=== PATIENT | male | born 1970 | race Caucasian/White ===

== ENCOUNTER → 2020-07-30 07:38 | Outpatient (CLI) | payer OTHER, SELFPAY ==
[2020-07-30 08:39] LABS: Hemoglobin A1C% w Est Avg Glu 8.5 % (4.0-6.0)
[2020-07-30 08:59] LABS: Creatinine Urine Random 118.4 mg/dL
[2020-07-30 09:00] LABS: Alanine Aminotransferase 30 IU/L (<50); Albumin Globulin Ratio 1.4 (1.0-2.8); Alkaline Phosphatase 80 U/L (38-126); Aspartate Aminotransferase 27 IU/L (17-59); BUN Creatinine Ratio 22.5 (6-22); Bilirubin Total 0.5 mg/dL (0.2-1.3); Blood Urea Nitrogen 25 mg/dL (9-20); Calcium 9.8 mg/dL (8.4-10.2); Carbon Dioxide 37 mmol/L (22-32); Chloride 102 mmol/L (98-107); Cholesterol 182 mg/dL (140-199); Estimated Glomerular Filt Rate > 60.0 mL/min (>60); Globulin 2.9 g/dL (1.7-4.1); Glucose 151 mg/dL (70-100); HDL Cholesterol 83 mg/dL (40-60); HEMOLYSIS < 15 (0-50); LDL Cholesterol Calculated 78 mg/dL (<100); Potassium 5.1 mmol/L (3.4-5.1); Sodium 140 mmol/L (137-145); Total Protein 6.9 g/dL (6.3-8.2); Triglycerides 105 mg/dL (35-150)
[2020-07-30 09:02] LABS: Microalbumi Creatinin Ratio Ur 19.4 ug/mg CR (<30); Microalbumin Urine Random 2.3 mg/dL (0-1.6)
== END ==
PROVIDERS: PCP Family Medicine; Referring Provider Family Medicine; Visit Provider Family Medicine
DX: E11.9 Type 2 diabetes mellitus without complications (principal); Z79.4 Long term (current) use of insulin
CPT/HCPCS: 36415; 80053; 80061; 82043; 82570; 83036

== ENCOUNTER → 2020-08-17 09:34 | Outpatient (CLI) | payer OTHER, SELFPAY ==
[2020-08-17 10:33] LABS: Hemoglobin A1C% w Est Avg Glu 8.8 % (4.0-6.0)
[2020-08-21 07:22] LABS: Percent Free Testosterone 2.43 % (1.50-4.20); Testosterone Free 16.12 ng/dL (5.00-21.00); Testosterone Total 663.5 ng/dL (264.0-916.0)
== END ==
PROVIDERS: PCP Family Medicine; Referring Provider Family Medicine; Visit Provider Family Medicine
DX: R68.82 Decreased libido (principal); E11.9 Type 2 diabetes mellitus without complications; Z79.4 Long term (current) use of insulin
CPT/HCPCS: 36415; 83036; 84402; 84403

== ENCOUNTER → 2020-09-01 08:58 | Outpatient (CLI) | payer OTHER, SELFPAY ==
--- NOTE | 2020-09-01 08:59 | DI.RAD.S_ITS ---
PROCEDURE: XR SHOULDER LT MIN 2V INDICATIONS: left shoulder pain TECHNIQUE: 3 views of the shoulder were acquired. COMPARISON: None. FINDINGS: Bones: No fractures or dislocations. Mild to moderate acromioclavicular joint and glenohumeral joint osteoarthritic changes are seen with joint space narrowing and small marginal osteophyte formation. No suspicious bony lesions. Visualized ribs appear intact. Soft tissues: No suspicious soft tissue calcifications. IMPRESSION: Mild to moderate left shoulder joint osteoarthritis. No fracture or dislocation. Dictated by: Kam Mercer M.D. on 09/01/2020 at 9:11 Approved by: Kam Mercer M.D. on 09/01/2020 at 9:12
== END ==
PROVIDERS: PCP Family Medicine; Referring Provider Family Medicine; Visit Provider Family Medicine
DX: M25.512 Pain in left shoulder (principal); M19.012 Primary osteoarthritis, left shoulder; G89.29 Other chronic pain
CPT/HCPCS: 73030

== ENCOUNTER → 2020-11-12 08:43 | Outpatient (CLI) | payer OTHER, SELFPAY ==
[2020-11-12 09:19] LABS: Hemoglobin A1C% w Est Avg Glu 7.7 % (4.0-6.0)
[2020-11-19 08:45] LABS: Percent Free Testosterone 2.72 % (1.50-4.20); Testosterone Free 16.01 ng/dL (5.00-21.00); Testosterone Total 588.7 ng/dL (264.0-916.0)
== END ==
PROVIDERS: PCP Family Medicine; Referring Provider Family Medicine; Visit Provider Family Medicine
DX: E11.9 Type 2 diabetes mellitus without complications (principal); Z79.4 Long term (current) use of insulin; N52.9 Male erectile dysfunction, unspecified
CPT/HCPCS: 36415; 83036; 84402; 84403

== ENCOUNTER → 2021-04-02 09:29 | Outpatient (CLI) | payer OTHER, SELFPAY ==
[2021-04-02 10:52] LABS: Hemoglobin A1C% w Est Avg Glu 7.4 % (4.0-6.0)
== END ==
PROVIDERS: PCP Family Medicine; Referring Provider Family Medicine; Visit Provider Family Medicine
DX: E11.9 Type 2 diabetes mellitus without complications (principal); Z79.4 Long term (current) use of insulin
CPT/HCPCS: 36415; 83036

== ENCOUNTER → 2021-06-22 13:30 | Outpatient (CLI) | payer OTHER, SELFPAY ==
[2021-06-22 14:36] LABS: Hemoglobin A1C% w Est Avg Glu 7.5 % (4.0-6.0)
== END ==
PROVIDERS: PCP Family Medicine; Referring Provider Family Medicine; Visit Provider Family Medicine
DX: E11.9 Type 2 diabetes mellitus without complications (principal); Z79.4 Long term (current) use of insulin
CPT/HCPCS: 36415; 83036

== ENCOUNTER → 2022-01-10 10:24 | Outpatient (CLI) | payer OTHER, SELFPAY ==
[2022-01-10 10:56] LABS: Add Manual Diff / Slide Review NO; Basophils Absolute Auto 0 /uL (0-100); Basophils Percent Auto 0.6 % (0-2); Eosinophils Absolute Auto 100 /uL (0-450); Eosinophils Percent Auto 1.2 % (2-4); Hematocrit 44.2 % (41-53); Hemoglobin 14.9 g/dL (13.5-17.5); Lymphocytes Absolute Auto 1500 /uL (1100-4500); Lymphocytes Percent Auto 25.5 % (25-40); Mean Corpuscular HGB Conc 33.8 % (30-36); Mean Corpuscular Hemoglobin 31.6 PG (26-34); Mean Corpuscular Volume 93.7 fL (80-100); Monocytes Absolute Auto 500 /uL (0-900); Monocytes Percent Auto 8.6 % (3-14); Neutrophils Absolute Auto 3900 /uL (1500-7000); Neutrophils Percent Auto 64.1 % (50-75); Platelet Count 225 X10^3/uL (150-400); Red Blood Cell Count 4.72 X10^6/uL (4.5-5.9)
[2022-01-10 11:55] LABS: Alanine Aminotransferase 31 IU/L (<50); Albumin Globulin Ratio 1.4 (1.0-2.8); Alkaline Phosphatase 77 U/L (38-126); Aspartate Aminotransferase 32 IU/L (17-59); BUN Creatinine Ratio 18.3 (6-22); Bilirubin Total 0.5 mg/dL (0.2-1.3); Blood Urea Nitrogen 23 mg/dL (9-20); Carbon Dioxide 29 mmol/L (22-32); Chloride 103 mmol/L (98-107); Cholesterol 145 mg/dL (140-199); Estimated Glomerular Filt Rate > 60 mL/min (>60); Globulin 2.8 g/dL (1.7-4.1); Glucose 140 mg/dL (70-100); HDL Cholesterol 71 mg/dL (40-60); HEMOLYSIS < 15 (0-50); LDL Cholesterol Calculated 60 mg/dL (<100); Potassium 4.7 mmol/L (3.4-5.1); Sodium 138 mmol/L (137-145); Total Protein 6.8 g/dL (6.3-8.2); Triglycerides 71 mg/dL (35-150)
[2022-01-10 11:57] LABS: Microalbumin Urine Random 4.7 mg/dL (0-1.6)
== END ==
PROVIDERS: PCP Family Medicine; Referring Provider Family Medicine; Visit Provider Family Medicine
DX: I10 Essential (primary) hypertension (principal); R80.9 Proteinuria, unspecified; Z79.4 Long term (current) use of insulin; E11.9 Type 2 diabetes mellitus without complications
CPT/HCPCS: 36415; 80053; 80061; 82043; 82570; 83036; 85025

== ENCOUNTER → 2022-12-13 07:36 | Outpatient (CLI) | payer OTHER, SELFPAY ==
[2022-12-13 10:15] LABS: Alanine Aminotransferase 36 IU/L (<50); Albumin Globulin Ratio 1.3 (1.0-2.8); Alkaline Phosphatase 87 U/L (38-126); Aspartate Aminotransferase 29 IU/L (17-59); BUN Creatinine Ratio 22.2 (6-22); Blood Urea Nitrogen 22 mg/dL (9-20); Calcium 9.1 mg/dL (8.4-10.2); Carbon Dioxide 30 mmol/L (22-32); Chloride 98 mmol/L (98-107); Estimated Glomerular Filt Rate > 60 mL/min (>60); Glucose 299 mg/dL (70-100); HEMOLYSIS < 15 (0-50); Potassium 4.6 mmol/L (3.4-5.1); Sodium 132 mmol/L (137-145)
[2022-12-14 04:12] LABS: x Labcorp Estim. Avg Glu (eAG) 209 mg/dL (.); x Labcorp Hemoglobin A1c 8.9 % (4.8-5.6)
[2022-12-14 09:49] LABS: Fecal Immunochemical Test Negative (Negative)
== END ==
PROVIDERS: PCP Family Medicine; Referring Provider Family Medicine; Visit Provider Family Medicine
DX: Z12.11 Encounter for screening for malignant neoplasm of colon (principal); E11.9 Type 2 diabetes mellitus without complications; Z79.4 Long term (current) use of insulin
CPT/HCPCS: 36415; 80053; 82274; 83036

== ENCOUNTER → 2022-12-29 09:06 | Outpatient (CLI) | payer OTHER, SELFPAY ==
--- NOTE | 2022-12-29 09:07 | DI.RAD.S_ITS ---
PROCEDURE: XR SHOULDER LT MIN 2V INDICATIONS: bilateral shoulder pain TECHNIQUE: 3 views of the shoulder were acquired. COMPARISON: [facility], CR, XR SHOULDER LT MIN 2V, 09/01/2020, 8:58. FINDINGS: Bones: No fractures or dislocations. No suspicious bony lesions. Mild osteoarthritic changes in acromioclavicular and glenohumeral joint. Visualized ribs appear intact. Soft tissues: No suspicious soft tissue calcifications. IMPRESSION: Mild osteoarthrosis. Dictated by: Anita Soto M.D. on 12/29/2022 at 13:21 Approved by: Anita Soto M.D. on 12/29/2022 at 13:22
--- NOTE | 2022-12-29 09:07 | DI.RAD.S_ITS ---
PROCEDURE: XR SHOULDER RT MIN 2V INDICATIONS: bilateral shoulder pain TECHNIQUE: 3 views of the shoulder were acquired. COMPARISON: None. FINDINGS: Bones: No fractures or dislocations. No suspicious bony lesions. Mild osteoarthritic changes in acromioclavicular and glenohumeral joint. Visualized ribs appear intact. Soft tissues: No suspicious soft tissue calcifications. IMPRESSION: Mild osteoarthritis. Dictated by: Anita Soto M.D. on 12/29/2022 at 13:22 Approved by: Anita Soto M.D. on 12/29/2022 at 13:26
== END ==
PROVIDERS: PCP Family Medicine; Referring Provider Family Medicine; Visit Provider Family Medicine
DX: M19.011 Primary osteoarthritis, right shoulder (principal); M19.012 Primary osteoarthritis, left shoulder
CPT/HCPCS: 73030

== ENCOUNTER → 2023-03-20 07:59 | Outpatient (CLI) | payer OTHER, SELFPAY ==
[2023-03-20 09:20] LABS: Hemoglobin A1C% w Est Avg Glu 6.9 % (4.0-6.0)
[2023-03-20 09:41] LABS: Alanine Aminotransferase 33 IU/L (<50); Albumin 3.9 g/dL (3.5-5.0); Albumin Globulin Ratio 1.3 (1.0-2.8); Alkaline Phosphatase 75 U/L (38-126); Aspartate Aminotransferase 34 IU/L (17-59); Bilirubin Total 0.4 mg/dL (0.2-1.3); Blood Urea Nitrogen 22 mg/dL (9-20); Calcium 8.9 mg/dL (8.4-10.2); Carbon Dioxide 30 mmol/L (22-32); Chloride 102 mmol/L (98-107); Cholesterol 171 mg/dL (140-199); Estimated Glomerular Filt Rate > 60 mL/min (>60); Globulin 2.9 g/dL (1.7-4.1); Glucose 96 mg/dL (70-100); HDL Cholesterol 87 mg/dL (40-60); HEMOLYSIS < 15 (0-50); LDL Cholesterol Calculated 78 mg/dL (<100); Potassium 4.2 mmol/L (3.4-5.1); Sodium 137 mmol/L (137-145); Total Protein 6.8 g/dL (6.3-8.2); Triglycerides 31 mg/dL (35-150)
[2023-03-20 10:58] LABS: Creatinine Urine Random 119.1 mg/dL
[2023-03-20 11:02] LABS: Microalbumi Creatinin Ratio Ur 32.7 ug/mg CR (<30); Microalbumin Urine Random 3.9 mg/dL (0-1.6)
== END ==
PROVIDERS: PCP Family Medicine; Referring Provider Family Medicine; Visit Provider Family Medicine
DX: E11.9 Type 2 diabetes mellitus without complications (principal); I10 Essential (primary) hypertension; R80.9 Proteinuria, unspecified; Z79.4 Long term (current) use of insulin; Z12.5 Encounter for screening for malignant neoplasm of prostate
CPT/HCPCS: 36415; 80053; 80061; 82043; 82570; 83036; G0103

== ENCOUNTER → 2023-06-14 12:28 | Outpatient (CLI) | payer OTHER, SELFPAY ==
[2023-06-14 13:32] LABS: Hemoglobin A1C% w Est Avg Glu 8.5 % (4.0-6.0)
[2023-06-14 13:43] LABS: Alanine Aminotransferase 25 IU/L (<50); Albumin 4.2 g/dL (3.5-5.0); Albumin Globulin Ratio 1.3 (1.0-2.8); Alkaline Phosphatase 88 U/L (38-126); Aspartate Aminotransferase 30 IU/L (17-59); BUN Creatinine Ratio 19.5 (6-22); Bilirubin Total 0.9 mg/dL (0.2-1.3); Blood Urea Nitrogen 16 mg/dL (9-20); Calcium 9.3 mg/dL (8.4-10.2); Carbon Dioxide 31 mmol/L (22-32); Chloride 102 mmol/L (98-107); Estimated Glomerular Filt Rate > 60 mL/min (>60); Globulin 3.2 g/dL (1.7-4.1); Glucose 293 mg/dL (70-100); HEMOLYSIS < 15 (0-50); Potassium 4.5 mmol/L (3.4-5.1); Sodium 137 mmol/L (137-145); Total Protein 7.4 g/dL (6.3-8.2)
== END ==
PROVIDERS: PCP Family Medicine; Referring Provider Family Medicine; Visit Provider Family Medicine
DX: E11.9 Type 2 diabetes mellitus without complications (principal); Z79.4 Long term (current) use of insulin; I10 Essential (primary) hypertension; R80.9 Proteinuria, unspecified; E16.2 Hypoglycemia, unspecified
CPT/HCPCS: 36415; 80053; 83036

== ENCOUNTER → 2023-06-19 13:05 | Outpatient (CLI) | payer OTHER, SELFPAY ==
[2023-06-19 14:14] LABS: Influenza A - CEPHEID Flu A NEGATIVE (NEGATIVE); Influenza B - CEPHEID Flu B NEGATIVE (NEGATIVE); Respiratory Syncytial Virus Negative (Negative)
[2023-06-19 14:15] LABS: COVID-19 CEPHEID 4-PLEX PCR Negative (Negative)
== END ==
PROVIDERS: PCP Family Medicine; Visit Provider Family Medicine
DX: R05.9 Cough, unspecified (principal); R09.89 Other specified symptoms and signs involving the circulatory and respiratory systems
CPT/HCPCS: 0241U

== ENCOUNTER → 2023-11-02 07:14 | Outpatient (CLI) | payer BC, SELFPAY ==
[2023-11-02 07:47] LABS: Add Manual Diff / Slide Review NO; Basophils Absolute Auto 100 /uL (0-100); Basophils Percent Auto 0.7 % (0-2); Eosinophils Absolute Auto 100 /uL (0-450); Eosinophils Percent Auto 0.7 % (2-4); Lymphocytes Absolute Auto 1300 /uL (1100-4500); Lymphocytes Percent Auto 17.9 % (25-40); Mean Corpuscular HGB Conc 33.4 % (30-36); Mean Corpuscular Hemoglobin 31.8 PG (26-34); Mean Corpuscular Volume 95.3 fL (80-100); Monocytes Absolute Auto 600 /uL (0-900); Monocytes Percent Auto 8.2 % (3-14); Neutrophils Absolute Auto 5100 /uL (1500-7000); Neutrophils Percent Auto 72.5 % (50-75); Platelet Count 224 X10^3/uL (150-400); Red Blood Cell Count 5.35 X10^6/uL (4.5-5.9); Red Cell Distribution Width 13.4 % (11.6-14.8); White Blood Cell Count 7.1 X10^3/uL (4.5-11.0)
[2023-11-02 08:59] LABS: Alanine Aminotransferase 33 IU/L (<50); Albumin 3.9 g/dL (3.5-5.0); Albumin Globulin Ratio 1.3 (1.0-2.8); Alkaline Phosphatase 87 U/L (38-126); Aspartate Aminotransferase 36 IU/L (17-59); BUN Creatinine Ratio 19.1 (6-22); Bilirubin Total 0.7 mg/dL (0.2-1.3); Blood Urea Nitrogen 26 mg/dL (9-20); Calcium 9.6 mg/dL (8.4-10.2); Carbon Dioxide 29 mmol/L (22-32); Chloride 104 mmol/L (98-107); Cholesterol 110 mg/dL (140-199); Estimated Glomerular Filt Rate > 60 mL/min (>60); Globulin 3.1 g/dL (1.7-4.1); Glucose 151 mg/dL (70-100); HDL Cholesterol 66 mg/dL (40-60); HEMOLYSIS < 15 (0-50); LDL Cholesterol Calculated 35 mg/dL (<100); Potassium 4.5 mmol/L (3.4-5.1); Sodium 139 mmol/L (137-145); Triglycerides 46 mg/dL (35-150)
[2023-11-02 09:01] LABS: Hemoglobin A1C% w Est Avg Glu 7.1 % (4.0-6.0)
[2023-11-02 11:12] LABS: Creatinine Urine Random 118.7 mg/dL
[2023-11-02 11:15] LABS: Microalbumin Urine Random 2.5 mg/dL (0-1.6)
[2023-11-03 04:10] LABS: Apolipoprotein B 42 mg/dL (<90)
[2023-11-06 17:11] LABS: Lipoprotein (a) 9.2 nmol/L (<75.0)
== END ==
PROVIDERS: PCP Family Medicine; Referring Provider Family Medicine; Visit Provider Family Medicine
DX: I10 Essential (primary) hypertension (principal); R80.9 Proteinuria, unspecified; E11.9 Type 2 diabetes mellitus without complications; E16.2 Hypoglycemia, unspecified; I21.4 Non-ST elevation (NSTEMI) myocardial infarction; I25.10 Atherosclerotic heart disease of native coronary artery without angina pectoris; Z79.4 Long term (current) use of insulin
CPT/HCPCS: 36415; 80053; 80061; 82043; 82172; 82570; 83036; 83695; 85025

== ENCOUNTER → 2024-01-18 10:21 | Outpatient (CLI) | payer OTHER, SELFPAY ==
--- NOTE | 2024-01-18 10:24 | DI.RAD.S_ITS ---
PROCEDURE: XR CERVICAL SPINE 2V OR 3V INDICATIONS: bilateral shoulder and radicular symptoms TECHNIQUE: 3 view(s) of the cervical spine were acquired. COMPARISON: None. FINDINGS: Bones: No fractures or dislocations to the T1 level. The lateral masses of C1 appear intact on the odontoid view. No suspicious bony lesions. Moderate disc height loss at C5-6, C6-7. Mild disc height loss at remaining levels. Diffuse facet arthrosis, most prominent at C4 through C7. Soft tissues: No prevertebral soft tissue swelling. IMPRESSION: Mild to moderate, multilevel degenerative disc disease and diffuse facet arthrosis. Dictated by: Evens Cruz M.D. on 01/18/2024 at 13:49 Approved by: Evens Cruz M.D. on 01/18/2024 at 13:49
== END ==
PROVIDERS: PCP Family Medicine; Referring Provider Family Medicine; Visit Provider Family Medicine
DX: M47.812 Spondylosis without myelopathy or radiculopathy, cervical region (principal); M50.31 Other cervical disc degeneration, high cervical region; M54.10 Radiculopathy, site unspecified; M19.019 Primary osteoarthritis, unspecified shoulder; I25.10 Atherosclerotic heart disease of native coronary artery without angina pectoris; I21.4 Non-ST elevation (NSTEMI) myocardial infarction; G56.03 Carpal tunnel syndrome, bilateral upper limbs; M35.3 Polymyalgia rheumatica
CPT/HCPCS: 72040

== ENCOUNTER → 2024-01-30 14:27 | Outpatient (CLI) | payer OTHER, SELFPAY ==
--- NOTE | 2024-01-30 14:43 | DIAB.INIT ---
Continuous Glucose Monitor (CGM) Diabetes Education Name: Elias Kilpatrick (Jero) Date: 01/30/24 Time: 230-3p Dx: Type II Diabetes Provider: Mely Presents today for CGM sample and diabetes education. Reports he is inconsistent with SMBG. Would like to know more about BG trends. Diagnosed in his 20s. Enjoys ice cream regularly per report. Wants to see how diet impacts BG. Physical Activity: Goes to the gym. Diabetes Medications: 25mg Jardiance 15u Lantus AM 2mg Ozempic Pertinent Labs: HgA1c: 8.5% 05/2023 7.2% 08/2023 7.1% 10/2023 Past Medical History: (Last Reviewed 12/13/23 @ 15:45 by Irais Castillo RN) CAD (coronary artery disease) Diabetes mellitus with insulin therapy Excessive daytime sleepiness Hypertension with albuminuria Long-term insulin use NSTEMI (non-ST elevated myocardial infarction) Primary osteoarthritis, left shoulder Intervention: This participant was very receptive. Provided appropriate educational handouts. Discussed the following topics: HgA1c goals Reviewed CGM use and equipment Discussed when to check blood sugars using finger stick Reviewed high and low blood sugar signs/symptoms and treatment options Provided education for self-administration of CGM placement Educated patient on alarm settings Discussed when to replace equipment and disposal Access to CGM, benefits and options Goals: Wear CGM x 14 days Follow-up: PATRICIO FAJARDO follow-up in 2 weeks Marissa Kenny RDN, TANA Certified Diabetes Care and Hog Room Supervisor P: [phone] Thank you for this referral
== END ==
PROVIDERS: PCP Family Medicine; Referring Provider Family Medicine
DX: E11.9 Type 2 diabetes mellitus without complications (principal); Z79.4 Long term (current) use of insulin; I10 Essential (primary) hypertension; R80.9 Proteinuria, unspecified; Z79.85 Long-term (current) use of injectable non-insulin antidiabetic drugs; Z79.84 Long term (current) use of oral hypoglycemic drugs
CPT/HCPCS: G0108

== ENCOUNTER → 2024-02-12 09:20 | Outpatient (CLI) | payer OTHER, SELFPAY ==
[2024-02-12 10:15] LABS: Hemoglobin A1C% w Est Avg Glu 7.2 % (4.0-6.0)
[2024-02-12 10:43] LABS: Alanine Aminotransferase 48 IU/L (<50); Albumin 3.8 g/dL (3.5-5.0); Albumin Globulin Ratio 1.5 (1.0-2.8); Alkaline Phosphatase 71 U/L (38-126); Aspartate Aminotransferase 44 IU/L (17-59); BUN Creatinine Ratio 17.8 (6-22); Bilirubin Total 0.8 mg/dL (0.2-1.3); Blood Urea Nitrogen 23 mg/dL (9-20); Calcium 8.6 mg/dL (8.4-10.2); Carbon Dioxide 29 mmol/L (22-32); Chloride 104 mmol/L (98-107); Estimated Glomerular Filt Rate > 60 mL/min (>60); Globulin 2.5 g/dL (1.7-4.1); Glucose 189 mg/dL (70-100); HEMOLYSIS 24 (0-50); Potassium 5.1 mmol/L (3.4-5.1); Sodium 135 mmol/L (137-145); Total Protein 6.3 g/dL (6.3-8.2)
[2024-02-12 10:48] LABS: C-Reactive Protein Quant < 0.5 mg/dL (<1.0)
[2024-02-12 11:14] LABS: Prostate Specific Antigen Scrn 1.93 ng/mL (0.1-4.0)
[2024-02-12 11:28] LABS: Erythrocyte Sedimentation Rate 1 MM/HR (0-15)
== END ==
PROVIDERS: PCP Family Medicine; Referring Provider Physician Assistant; Visit Provider Physician Assistant
DX: Z12.5 Encounter for screening for malignant neoplasm of prostate (principal); Z79.4 Long term (current) use of insulin; E11.9 Type 2 diabetes mellitus without complications; I10 Essential (primary) hypertension; R80.9 Proteinuria, unspecified; M25.511 Pain in right shoulder; M35.3 Polymyalgia rheumatica; M25.512 Pain in left shoulder
CPT/HCPCS: 36415; 80053; 83036; 85651; 86140; G0103

== ENCOUNTER → 2024-02-16 14:37 | Outpatient (CLI) | payer OTHER, SELFPAY ==
--- NOTE | 2024-02-16 15:16 | DIAB.FU ---
Follow-up Diabetes Education Assessment Name: Elias Kilpatrick (Jero) Date: 02/16/24 Time: 3-325p Dx: Type II Diabetes Provider: Mely Presents today after CGM sample and diabetes education. CGM fell off few days after placement. Unable to access reports for BG. PCP placed Rx for G7 two days ago. 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 Feels he will be able to place and start sensor on his own. Provided him with resources and started an acct on Dexcom janeth in clinic. Wants to see how CGM goes before making diet changes. Eye appt yearly. Dental q 6 months. Does not check feet. Endorses dry heels during summer months. Wears socks in house, no slipper. Physical Activity: Goes to the gym. Diabetes Medications: 25mg Jardiance 15u Lantus AM 2mg Ozempic Pertinent Labs: HgA1c: 8.5% 05/2023 7.2% 08/2023 7.1% 10/2023 7.2% 01/2024 Past Medical History: (Last Reviewed 12/13/23 @ 15:45 by Irais Castillo RN) CAD (coronary artery disease) Diabetes mellitus with insulin therapy Excessive daytime sleepiness Hypertension with albuminuria Long-term insulin use NSTEMI (non-ST elevated myocardial infarction) Primary osteoarthritis, left shoulder Intervention: This participant was very receptive. Provided appropriate educational handouts. Discussed the following topics: Dexcom G7 v FSL: apps, coupons if not covered for any reason, alerts, application Foot care: check feet, infection risks with hyperglycemia, dry foot tx, encouraged wearing a slipper with sole Pharmacy troubleshooting for G7 rx and messaged PCP team Goals: Wear CGM x 14 days- d/c Call or message RD if needing help with placement of sensor and/or needing f/u- new Follow-up: PATRICIO FAJARDO follow-up prn per pt request. Marissa Kenny RDN, TANA Certified Diabetes Care and Packager Hand P: [phone] Thank you for this referral
== END ==
PROVIDERS: PCP Family Medicine; Referring Provider Family Medicine
DX: E11.9 Type 2 diabetes mellitus without complications (principal); Z79.84 Long term (current) use of oral hypoglycemic drugs; Z79.4 Long term (current) use of insulin; Z79.85 Long-term (current) use of injectable non-insulin antidiabetic drugs; Z71.3 Dietary counseling and surveillance
CPT/HCPCS: G0108

== ENCOUNTER → 2024-02-21 16:09 | Outpatient (CLI) | payer OTHER, SELFPAY ==
--- NOTE | 2024-02-21 16:10 | DI.MRI.S_ITS ---
PROCEDURE: MR CERVICAL SPINE WO CON INDICATIONS: eval cervical disc degenaration, radicular sx TECHNIQUE: Noncontrast sagittal T1 spin echo and T2 fast spin echo, sagittal STIR, foraminal oblique sagittal T2 fast spin echo, and axial gradient echo or T2 fast spin echo through the cervical spine. COMPARISON: None. FINDINGS: Image quality: Excellent. Alignment and Curvature: There is normal bony alignment. Bone Marrow: Marrow demonstrates normal overall signal. Spinal Cord: Visualized spinal cord has normal size and signal. No cerebellar tonsillar herniation. Paraspinous Soft Tissues: No paravertebral masses. Prevertebral soft tissues are normal in thickness. C2-C3: Normal appearance. C3-C4: Normal appearance. C4-C5: Normal appearance. C5-C6: Posterior disc osteophyte complex results in dwwz-kk-yzenvifr central stenosis. Moderate bilateral foraminal stenosis C6-C7: Posterior disc osteophyte complex results in hpfp-cm-hjvnmezn central stenosis.. Hypertrophic facet joints present. Moderate bilateral foraminal stenosis. C7-T1: No central stenosis. Facet arthropathy. Severe left and no right foraminal stenosis IMPRESSION: Multilevel degenerative disc disease and arthropathy results in varying degrees of central and foraminal stenosis including severe left foraminal stenosis Approved by: Livan Ayala M.D. on 02/22/2024 at 12:43
== END ==
PROVIDERS: PCP Family Medicine; Referring Provider Family Medicine; Visit Provider Family Medicine
DX: M48.02 Spinal stenosis, cervical region (principal); M50.322 Other cervical disc degeneration at C5-C6 level; M19.011 Primary osteoarthritis, right shoulder; M19.012 Primary osteoarthritis, left shoulder; M25.511 Pain in right shoulder; M25.512 Pain in left shoulder; G56.03 Carpal tunnel syndrome, bilateral upper limbs; M47.812 Spondylosis without myelopathy or radiculopathy, cervical region
CPT/HCPCS: 72141

== ENCOUNTER → 2024-06-29 09:42 | Outpatient (CLI) | payer OTHER, SELFPAY ==
[2024-06-29 11:05] LABS: Hemoglobin A1C% w Est Avg Glu 7.1 % (4.0-6.0)
== END ==
PROVIDERS: PCP Family Medicine; Referring Provider Family Medicine; Visit Provider Family Medicine
DX: E11.9 Type 2 diabetes mellitus without complications (principal); Z79.4 Long term (current) use of insulin
CPT/HCPCS: 36415; 83036

== ENCOUNTER → 2024-07-02 16:21 | Outpatient (CLI) | payer OTHER, SELFPAY ==
--- NOTE | 2024-07-02 16:23 | DI.RAD.S_ITS ---
PROCEDURE: XR SHOULDER RT MIN 2V INDICATIONS: Right Shoulder Pain TECHNIQUE: 3 views of the shoulder were acquired. COMPARISON: [facility], CR, XR SHOULDER RT MIN 2V, 12/29/2022, 9:04. [facility], CR, XR SHOULDER LT MIN 2V, 09/01/2020, 8:58. FINDINGS: Bones: No fractures or dislocations. Mild to moderate acromioclavicular and glenohumeral joint degeneration. No suspicious bony lesions. Visualized ribs appear intact. Soft tissues: No suspicious soft tissue calcifications. IMPRESSION: No acute bony abnormality. Mild to moderate acromioclavicular and glenohumeral joint degeneration, similar to prior. Dictated by: Kwasi Paul M.D. on 07/03/2024 at 10:07 Approved by: Kwasi Paul M.D. on 07/03/2024 at 10:11
--- NOTE | 2024-07-02 16:23 | DI.RAD.S_ITS ---
PROCEDURE: XR SHOULDER LT MIN 2V INDICATIONS: Left Shoulder Pain TECHNIQUE: 3 views of the shoulder were acquired. COMPARISON: [facility], CR, XR SHOULDER RT MIN 2V, 12/29/2022, 9:04. [facility], CR, XR SHOULDER LT MIN 2V, 09/01/2020, 8:58. FINDINGS: Bones: No fractures or dislocations. Abga-dn-roogqorl glenohumeral and acromioclavicular joint degeneration. No suspicious bony lesions. Visualized ribs appear intact. Soft tissues: No suspicious soft tissue calcifications. IMPRESSION: No acute bony abnormality. Mild to moderate glenohumeral and acromioclavicular joint degeneration. This is similar to prior. Dictated by: Kwasi Paul M.D. on 07/03/2024 at 10:06 Approved by: Kwasi Paul M.D. on 07/03/2024 at 10:07
--- NOTE | 2024-07-02 16:23 | DI.RAD.S_ITS ---
PROCEDURE: XR WRIST RT MIN 3V INDICATIONS: Right Wrist Pain TECHNIQUE: 4 views of the wrist were acquired. COMPARISON: None. FINDINGS: Bones: No fractures or dislocations. No suspicious bony lesions. Soft tissues: No suspicious soft tissue calcifications. Atherosclerotic vascular calcifications. IMPRESSION: No acute osseous abnormality. If pain persists with conservative management, consider repeat x-ray in 10-14 days or cross-sectional imaging. Dictated by: Kwasi Paul M.D. on 07/03/2024 at 10:11 Approved by: Kwasi Paul M.D. on 07/03/2024 at 10:13
== END ==
PROVIDERS: PCP Family Medicine; Referring Provider Family Medicine; Visit Provider Family Medicine
DX: M19.012 Primary osteoarthritis, left shoulder (principal); M19.011 Primary osteoarthritis, right shoulder; M25.512 Pain in left shoulder; M25.511 Pain in right shoulder; M25.531 Pain in right wrist
CPT/HCPCS: 73030; 73110

== ENCOUNTER → 2024-10-24 10:21 | Outpatient (CLI) | payer OTHER, SELFPAY ==
[2024-10-24 12:25] LABS: Add Manual Diff / Slide Review NO; Basophils Absolute Auto 0 /uL (0-100); Basophils Percent Auto 0.3 % (0-2); Eosinophils Absolute Auto 0 /uL (0-450); Eosinophils Percent Auto 0.4 % (2-4); Lymphocytes Absolute Auto 1600 /uL (1100-4500); Lymphocytes Percent Auto 19.8 % (25-40); Mean Corpuscular HGB Conc 34.1 % (30-36); Mean Corpuscular Hemoglobin 32.8 PG (26-34); Monocytes Absolute Auto 600 /uL (0-900); Monocytes Percent Auto 7.8 % (3-14); Neutrophils Absolute Auto 5800 /uL (1500-7000); Neutrophils Percent Auto 71.7 % (50-75); Platelet Count 216 X10^3/uL (150-400); Red Blood Cell Count 4.58 X10^6/uL (4.5-5.9); Red Cell Distribution Width 13.3 % (11.6-14.8); White Blood Cell Count 8.1 X10^3/uL (4.5-11.0)
[2024-10-24 12:31] LABS: Hemoglobin A1C% w Est Avg Glu 7.6 % (4.0-6.0)
[2024-10-24 12:50] LABS: BUN Creatinine Ratio 27.5 (6-22); Blood Urea Nitrogen 25 mg/dL (9-20); Calcium 9.4 mg/dL (8.4-10.2); Carbon Dioxide 27 mmol/L (22-32); Chloride 102 mmol/L (98-107); Estimated Glomerular Filt Rate > 60 mL/min (>60); Glucose 223 mg/dL (70-100); HEMOLYSIS < 15 (0-50); Potassium 4.3 mmol/L (3.4-5.1); Sodium 137 mmol/L (137-145)
== END ==
LOC: LAB 10:22
PROVIDERS: PCP Family Medicine; Referring Provider Nurse Practitioner Family; Visit Provider Nurse Practitioner Family
DX: I25.10 Atherosclerotic heart disease of native coronary artery without angina pectoris (principal); I10 Essential (primary) hypertension; R80.9 Proteinuria, unspecified; E11.9 Type 2 diabetes mellitus without complications; Z79.4 Long term (current) use of insulin
CPT/HCPCS: 36415; 80048; 83036; 85025

== ENCOUNTER 2025-01-17 07:57 | Day surgery (SDC) | payer OTHER, SELFPAY ==
--- NOTE | 2025-01-17 | PATH_ITS ---
[facility] Accession Number: [id number] No. of containers..02 Tissue . 01 Material submitted: . PART A: colon - COLON, ASCENDING POLYP PART B: colon - COLON, DESCENDING POLYP . 01 Diagnosis: Part A: COLON, ASCENDING POLYP: Tubular adenoma. . Part B: COLON, DESCENDING POLYP: Tubular adenoma. STO 01/23/2025 1240 Local . 01 Electronically signed: . Nnamdi Sparks MD, Pathologist NPI- [id number] . 01 Gross description: . Part A: COLON,ASCENDING POLYP: Received in formalin is 1 fragment(s) of zavala, soft tissue measuring 0.6 x 0.3 x 0.3 cm submitted entirely in 1 cassette(s) . Part B: COLON,DESCENDING POLYP: Received in formalin is 1 fragment(s) of zavala, soft tissue measuring 0.7 x 0.4 x 0.4 cm submitted entirely in 1 cassette(s) /EFREN 01/23/2025 1240 Local . 01 Pathologist provided ICD-10: D12.2, D12.4 . 01 CPT . 824329, [id number] Specimen Comment: A courtesy copy of this report has been sent to [phone] Performed at: [address] [facility] [address], [place], [place] [id number] MD Nnamdi Sparks MD Phone: [phone]
[2025-01-17 08:27] VITALS: BP 133/75; PULSE 70; RESP 15; TEMP 36.1; O2SAT 100
[2025-01-17] MEDS: LACTATED RINGERS 1,000 ML 42 ML IV (08:36)
[2025-01-17 08:37] LABS: POC Glucose 59 mg/dL (70-99)
--- NOTE | 2025-01-17 08:51 | PM.HP.IH.1 ---
History of Present Illness History of Present Illness Date Patient Seen: 01/17/25 Time Patient Seen: 08:51 Chief complaint: Colonoscopy Narrative: Shaggy is a 54-year-old man here for a screening colonoscopy. See the office note for details. [facility] Medical History Osteoarthritis of right shoulder Cervical stenosis of spine CAD (coronary artery disease) NSTEMI (non-ST elevated myocardial infarction) Excessive daytime sleepiness Primary osteoarthritis, left shoulder Hypertension with albuminuria Long-term insulin use Diabetes mellitus with insulin therapy Surgical History Anesthesia History of back surgery Family History Mother Congestive heart failure Social History marital status: household members: spouse lives independently: Yes occupational status: employed Smoking Status: Never smoker alcohol intake: current substance use type: marijuana Meds Home Medications and Allergies Home Medications ?Medication ?Instructions ?Recorded ?Confirmed ?Type True Metrics Test Strips #400 ea 06/19/23 10/24/24 Rx atorvastatin 40 mg tablet 40 mg PO QPM 10/06/23 01/17/25 History clopidogrel 75 mg tablet 75 mg PO DAILY 10/06/23 01/17/25 History nitroglycerin 0.4 mg sublingual 0.4 mg sublingual Q5M PRN 10/06/23 10/24/24 History tablet blood-glucose sensor (Dexcom G7 #9 ea 05/14/24 10/24/24 Rx Sensor device) empagliflozin 25 mg tablet 25 mg PO DAILY #90 tabs 05/14/24 01/17/25 Rx (Jardiance) losartan 25 mg tablet 25 mg PO DAILY #90 tabs 05/14/24 01/17/25 Rx gabapentin 300 mg capsule 300 mg PO .COMPLEX #90 caps 09/11/24 01/17/25 Rx pregabalin 150 mg capsule 150 mg PO BID 10/24/24 01/17/25 History Lantus U-100 Insulin 100 unit/mL 15 unit (0.15 mL) SUBCUT DAILY #10 11/08/24 01/17/25 Rx subcutaneous solution (insulin mL glargine) semaglutide 2 mg/dose (8 mg/3 mL) 2 mg (0.75 mL) SUBCUT QWEEK #3 mL 11/18/24 01/17/25 Rx subcutaneous pen injector (Ozempic) metoprolol succinate 25 mg 12.5 mg PO DAILY 01/17/25 01/17/25 History tablet,extended release 24 hr Allergies Allergy/AdvReac Type Severity Reaction Status Date / Time No Known Drug Allergies Allergy Verified 01/17/25 08:44 Exam Vital Signs (past 8 hours): - 01/17/25 08:27 Temperature 97 F L Pulse Rate 70 Respiratory Rate 15 Blood Pressure 133/75 Pulse Oximetry 100 Oxygen Delivery Method Room Air Oxygen Delivery Method Room Air Const General: healthy appearing Objective Labs Labs: Laboratory Results - last 24 hr 01/17/25 08:31 POC Whole Bld Glucose 59 L Assessment & Plan Assessment and plan (1) Colon cancer screening: Status: Acute Plan Colonoscopy Time-Based Coding :: [TOTAL MINUTES] spent with patient and on the chart (including review of chart, obtaining history, exam, reviewing outside data, placing orders, documenting exam and treatment plan, and counseling patient) on [DATE]. PROFEE Wallboard Worker Document charge(s): No
[2025-01-17 09:24] VITALS: BP 90/48; PULSE 80; RESP 13; TEMP 36.2; O2SAT 99
--- NOTE | 2025-01-17 09:29 | PM.OP.COLON ---
Operative Date/Time/Diagnoses Date of procedure: 01/17/25 Time of procedure: 09:29 Pre-op diagnosis: Colon cancer screening Post-op diagnosis: same Procedure & Clinicians Study performed: Colonoscopy Same procedure(s) as scheduled: Yes Surgeon: Camilo Cisneros Procedure Notes Procedure in detail: Surgeon: Camilo Cisneros MD Anesthesia: Aaliyah Yanez CRNA Procedure: The patient was brought to the endoscopy suite, placed in left lateral decubitus position. The patient was connected to monitoring devices. A time-out was performed. Sedation was administered. Once the patient was adequately sedated, a digital rectal exam was performed and was normal. The scope was then inserted and advanced to the cecum where the appendiceal orifice was identified and photographed. The scope was then slowly withdrawn over greater than 6 minutes. The mucosa was thoroughly inspected. There was a 5 mm polyp in the ascending colon removed with a cold snare. There was a 5 mm polyp in the descending colon removed with a cold snare. The scope was retroflexed in the rectum. No other abnormalities were found. The scope was straightened and removed. The patient was awakened and brought to recovery. Scope withdrawal time: 13 minutes Sedation time: 22 minutes EBL: 5 mL Findings: 5 mm polyp in the ascending colon and 5 mm polyp in the descending colon Post-procedure Disposition: PACU
[2025-01-17 09:30] VITALS: BP 112/59; PULSE 67; RESP 16; O2SAT 98
[2025-01-17 09:38] VITALS: BP 108/62; PULSE 66; RESP 14; O2SAT 99
== END 2025-01-17 10:10 | disposition home or self-care (01) ==
PROVIDERS: PCP Family Medicine; Referring Provider Surgery; Visit Provider Surgery
PROC: 0DJD8ZZ Inspection of Lower Intestinal Tract, Via Natural or Artificial Opening Endoscopic (ICD-10-PCS; CPT 45378; principal; 2025-01-17 09:00)
DX: Z12.11 Encounter for screening for malignant neoplasm of colon (principal); D12.2 Benign neoplasm of ascending colon; D12.4 Benign neoplasm of descending colon
CPT/HCPCS: 45385; 82962; J2704